=== PATIENT | female | born 1955 | race Caucasian/White ===

== ENCOUNTER 2016-07-13 06:41 | Day surgery (SDC) | payer MEDICARE, MEDICAID ==
--- NOTE | ~2016-07-13 | OP ---
PATIENT NAME: ROSEANNE WELCH MEDICAL RECORD: [id number] :51 LOCATION:[facility] ADMISSION DATE: SURGEON: TRISTA PERALES MD DATE OF OPERATION: 07/13/2016 PREOPERATIVE DIAGNOSES: End-stage renal disease with dependence upon hemodialysis and other mechanical complication of surgically created left upper extremity arteriovenous fistula with a resultant steal syndrome and ischemic symptoms in the left forearm and hand. OPERATIONS PERFORMED: Fistulogram, selective placement of the catheter in the first order brachial artery with brachial arteriograms with and without occlusion of the AV fistula and during and at the completion of the LOTT banding procedure. Ligation of distal cephalic vein outflow of AV fistula and placement of three 2-0 Prolene ligatures around the fistula tied over a 4-mm diameter angioplasty balloon to restrict flow in the fistula. SURGEON: Trista Perales MD. ANESTHESIA: General per CRYOGENICS ENGINEER. REFERRING PHYSICIAN: Janneth Kramer MD. PREOPERATIVE NOTE: Ms. Welch is a 60-year-old white female patient with end-stage renal disease, on chronic hemodialysis. She dialyzes in [place], I believe 3 days a week. She has a bruce fistula in her left upper extremity with well-developed cephalic vein in the arm, but also well-developed runoff via the cephalic vein in the forearm with venous return via a host of collaterals, but particularly, via the basilic vein in the forearm. She has claudication-type cramping and pain in the left forearm and hand during dialysis consistent with steal syndrome. She has no areas of gangrene or ulceration or visibly ischemic tissue in the left hand or forearm. She is brought to the operating room now with plans to ligate the distal cephalic vein and outflow tract and perform a fistulogram and most likely a LOTT banding procedure to restrict flow in the fistula and thereby hopefully increasing arterial flow into the forearm and left hand. DESCRIPTION OF PROCEDURE: With the patient under general anesthesia in supine position, the left arm was prepped and draped in a sterile manner. The fistula was examined. It was large with good pulsatility. There was good collapse with elevation and certainly good augmentation. I performed an ultrasound and saw no evidence of stenosis or any other problem between the deltopectoral groove in the antecubital space. I accessed the fistula at the mid humeral level in a retrograde direction with micropuncture technique and placed a 4-Filipino introducer there. I made an incision directly over the first portion of the cephalic vein above the arterial anastomosis. I dissected the vein above and below the anticipated area for banding and controlled these areas with doubly-looped Silastic tapes. I encircled the cephalic vein just below its point of confluence with the fistula and ligated it doubly with 2-0 silk. I then passed a guidewire in a retrograde direction down the fistula and I was able to guide it across the arterial anastomosis, which did prove to be to the proximal radial artery and advanced a wire up in the brachial artery and then performed angiography with and without occlusion of the fistula. There was a paucity of flow into the forearm and hand with the fistula open and this was improved only meagerly by occlusion of the fistula. I elected then to go ahead OPERATIVE REPORT [id number] ROSEANNE WELCH with a LOTT banding procedure. A 4-mm diameter angioplasty balloon was then inserted over the guidewire, was positioned in the swing segment or juxta-anastomotic segment of the fistula. It was inflated to 6 atmospheres, the nominal working pressure for this balloon, after which I encircled it with a total of 3 simple 2-0 Prolene ligatures which were tied down snugly over the balloon with it inflated at 6 atmospheres. The balloon was then deflated and repeat angiography through the selective brachial artery catheter demonstrated a very dramatic improvement in flow into the hand and forearm. Actually, we first put on 2 ties and then did an angiogram, which showed [id number] improvement, but after the third Prolene tie was applied, there was a dramatic improvement in flow into the hand and I noted that both ulnar and radial arteries are patent and the palmar arch of the hand is intact. The Prolene ties on the juxta-anastomotic segment are spaced approximately 1 cm apart and are quite easily visible and identifiable on the angiogram. I failed to relate that the 4-Filipino introducer was removed and a 6-Filipino introducer inserted through which the work I have just described was performed. When that was completed, continued contrast injections through that port allowed visualization of the proximal cephalic vein and cephalic arch which had no areas of stenosis or obstruction. The subclavian innominate and superior vena cava all were of normal caliber and there was free flow through the superior vena cava into the right atrium. The 6-Filipino port was removed and hemostasis obtained with a [id number]-[id number] 4-0 Prolene in a period of direct pressure. That site was subsequently dressed with Avitene Ultrafoam and Tegaderm with Cavilon skin prep. The open wound of the antecubital space over the juxta-anastomotic segment of the fistula was first irrigated with Ancef and gentamicin solution, was then infiltrated cautiously with 0.25% Marcaine without epinephrine. The wound was closed with a layer of interrupted inverted 3-0 Vicryl and then a layer of running 4-0 intracuticular Monocryl. The incision was then additionally closed and sealed with Dermabond glue and dressed with Maxorb Ag, Tegaderm and Cavilon skin prep. Doppler examination of the radial and ulnar arteries at the wrist demonstrated again a dramatic improvement in polyphasic flow and good amplitude certainly improved over the preoperative Doppler findings. The patient was awakened and taken to the recovery room in stable condition. I plan for her to go home later today and I will follow up with her in my office. She will continue her same home medications and resume her usual dialysis schedule. She is given a prescription for tramadol 50 mg, #30, 1 or 2 p.o. q.4 hours p.r.n. for pain. TRANSINT:[id number] Voice Confirmation ID: [id number] DOCUMENT ID: [id number] TRISTA PERALES MD CC: JANNETH KRAMER MD [id number] DICTATION DATE: 07/13/161213 CARBON DIOXIDE OPERATOR: 07/13/16 [id number] [facility] 07/13/16 [facility] [address] [place] [address]
[~2016-07-13 06:41] MED LIST: ATARAX 25 MG TA25 MG PO; BUMEX2 MG PO; CATAPRES0.2 MG PO; CLEOCIN HCL300 MG PO; COLACE100 MG PO; COREG12.5 MG PO; HYDROCODONE-APA1 TAB PO; IMODIUM2 MG PO; LINZESS145 MCG PO; MELATONIN 10 M1 EACH PO; NOVOLOG MIX 70/10 ML SC; NYSTATIN1 PWD TOPICAL; OCUFLOX 0.3 % OP5 ML RIGHT EYE; OMEPRAZOLE20 M1 PO; PRED FORTE5 ML EACH EYE; TRAZODONE HCL50 MG PO; TRIGLIDE160 MG PO; XANAX1 MG PO; ZOCOR40 MG PO
[2016-07-13 07:37] LABS: BASOPHILS 0.7 % (0-2); EOSINOPHILS 3.8 % (0-7); HEMATOCRIT 29.2 % (36.0-48.0); HEMOGLOBIN 9.2 g/dL (12-16); IMMATURE GRANULOCYTES 0.2 % (0-5); MCH 29.3 pg (26.0-34.0); MCHC 31.5 g/dL (31.0-37.0); MEAN PLATELET VOLUME 9.5 fL (7.4-10.4); MONOCYTES 7.8 % (2-11); NEUTROPHILS 70.5 % (40-80); PLATELET COUNT 216 10x3/uL (130-400); RBC 3.14 10x6/uL (4.00-5.40); RDW 14.3 % (11.5-14.5); WBC 4.5 10x3/uL (4.8-10.8)
[2016-07-13 07:54] LABS: APTT 33.3 SECONDS (22.8-39.4); INR 1.29 (0.85-1.17)
[2016-07-13 07:55] LABS: ANION GAP 12.3 mmol/L (8-16); CALCIUM 8.1 mg/dL (8.5-10.1); CARBON DIOXIDE 26.3 mmol/L (21.0-32.0); CREATININE - SERUM 3.7 mg/dL (0.6-1.3); POTASSIUM - SERUM 4.6 mmol/L (3.5-5.1)
[2016-07-13 08:46] VITALS: Ht 170.2 cm
--- NOTE | 2016-07-13 13:14 | NUR ---
1240-RECD TO ROOM FROM PACU. POST OF INTRA-OP FISTULOGRAM, LEFT ARM. DRESSING DRY AND INTACT. + THRILL. DENIES PAIN/NAUSEA.
== END 2016-07-13 17:00 | disposition home or self-care (01) ==
LOC: D.OPS 06:41
PROVIDERS: Surgery
DX: T82.898A Other specified complication of vascular prosthetic devices, implants and grafts, initial encounter (principal); T82.590A Other mechanical complication of surgically created arteriovenous fistula, initial encounter; N18.6 End stage renal disease; Z99.2 Dependence on renal dialysis